=== PATIENT | female | born 1950 ===

== ENCOUNTER 2020-12-22 09:53 | Outpatient (CLI) | payer OTHER ==
[~2020-12-22 09:53] MED LIST: CATAFLAM50 MG PO; DIABETA1.25 MG; HYZAAR 50/12.51 TAB PO; ONGLYZA5 MG
== END 2020-12-22 10:00 | disposition home or self-care (01) ==
LOC: RAD 09:53
PROVIDERS: ATTEND Ophthalmology
DX: R07.89 Other chest pain (principal); H25.011 Cortical age-related cataract, right eye; Z98.41 Cataract extraction status, right eye